=== PATIENT | female | born 1965 | race Caucasian/White ===

== ENCOUNTER 2017-09-08 11:02 | Day surgery (SDC) | payer OTHER ==
[~2017-09-08] VITALS: Ht 175.3 cm; Wt 77.1 kg
[~2017-09-08 11:02] MED LIST: EFFEXOR25 MG PO; HYDROCHLOROTHIA25 MG PO
[2017-09-08 11:40] LABS: MCH 32.6 PG (29.0-34.0); MCHC 33.6 G/DL (30.0-36.0); MEAN PLAT.VOLUME 10.6 uM^3 (9.5-12.4); PLATELET COUNT 230 K/uL (156-360); RBC DIS.WIDTH-CV 11.8 % (11.8-14.6); RBC DIS.WIDTH-SD 42.6 % (39-53); RED BLOOD COUNT 4.33 M/uL (3.80-5.20); WHITE BLOOD COUNT 4.6 K/uL (4.1-10.2)
[2017-09-08 11:49] VITALS: BP 136/85
[2017-09-08 12:06] LABS: ANION GAP 7 MEQ/L (2-14); CHLORIDE 103 MEQ/L (99-109); POTASSIUM 3.7 MEQ/L (3.7-5.4); SAMPLE HEMOLYSIS CHECK 0; SAMPLE ICTERIC CHECK 0; SAMPLE LIPEMIA CHECK 0; SODIUM 142 MEQ/L (136-147); TOTAL BILIRUBIN 0.6 MG/DL (0.0-1.0)
[2017-09-08 12:11] LABS: ALKALINE PHOSPHATASE 77 IU/L (3-129); GFR ESTIMATE (CALCULATED) > 59 mL/min/; GLUCOSE 100 mg/dL (70-99); UREA NITROGEN (BUN) 14 mg/dL (9-23)
[2017-09-08 15:15] VITALS: BP 160/80
[2017-09-08 16:20] VITALS: BP 125/63
== END 2017-09-08 16:38 | disposition home or self-care (01) ==
LOC: SDC 11:02
PROVIDERS: Ophthalmology
DX: H33.002 Unspecified retinal detachment with retinal break, left eye (principal); H33.42 Traction detachment of retina, left eye
CPT/HCPCS: 80053; 85027; 93005; J0690; J1100; J1120; J2795; J3300